=== PATIENT | male | born 1985 | race Caucasian/White ===

== ENCOUNTER 2018-09-05 21:23 | Emergency (ER) | payer OTHER ==
[~2018-09-05] VITALS: Ht 190.5 cm; Wt 127.0 kg
[~2018-09-05 21:23] MED LIST: ALLERGY10 MG PO
== END 2018-09-05 22:31 | disposition home or self-care (01) ==
LOC: ED 21:23
PROC: 08C8XZZ Extirpation of Matter from Right Cornea, External Approach (ICD-10-PCS; principal; 2018-09-05)
DX: T15.01XA Foreign body in cornea, right eye, initial encounter (principal); Z23 Encounter for immunization
CPT/HCPCS: 65220; 90471; 90715; 99283-25

== ENCOUNTER 2022-08-29 14:20 | Emergency (ER) | payer OTHER ==
[~2022-08-29] VITALS: Ht 190.5 cm; Wt 131.5 kg
== END 2022-08-29 15:57 | disposition home or self-care (01) ==
LOC: ED 14:20
DX: S80.01XA Contusion of right knee, initial encounter (principal); W17.89XA Other fall from one level to another, initial encounter
CPT/HCPCS: 73560; 99283-25